=== PATIENT | female | born 1945 | race American Indian/Alaskan Native ===

== ENCOUNTER 2017-01-27 11:03 | Outpatient (CLI) | payer MEDICARE ==
[2017-01-27 11:35] LABS: Blood Urea Nitrogen 18 mg/dL (7-17)
[2017-01-27] MEDS ORDERED: NACL ONE (12:31)
--- NOTE | 2017-01-27 14:33 | Cat Scan Report ---
CT CHEST WITH CONTRAST: HISTORY: Dyspnea, chest pain. TECHNIQUE: Helical CT following IV contrast. Sagittal and coronal reformatted images. FINDINGS: Heart size is normal. There is no evidence of adenopathy within the mediastinum. Pulmonary eladia are free of any mass and the lungs are clear of infiltrates. The pleura is unremarkable. No masses involve the chest wall. No abnormalities are noted within the upper abdomen. The adrenal glands are normal. IMPRESSION: Unremarkable CT scan of the chest.
== END 2017-01-27 11:04 | disposition home or self-care (01) ==
LOC: CT 11:03
PROVIDERS: ATTEND Internal Medicine
DX: R07.2 Precordial pain (principal); R06.00 Dyspnea, unspecified; R10.9 Unspecified abdominal pain
CPT/HCPCS: 36415; 71260; 82565; 84520; Q9967

== ENCOUNTER 2018-12-23 11:11 | Outpatient (CLI) | payer MEDICARE ==
[2018-12-23 12:12] LABS: Blood Urea Nitrogen 11 mg/dL (7-17)
--- NOTE | 2018-12-23 15:35 | Cat Scan Report ---
CT CHEST WITH CONTRAST INDICATION: Female breast cancer. COMPARISON: 01/27/[address] FINDINGS: Chest CT performed following intravenous administration of 100 cc of Omnipaque 300. Stable top normal heart size. No effusions or size significant adenopathy. Mild aortic arch calcifications. Otherwise unremarkable great vessels. Diffuse left breast skin thickening now partially imaged as also few surgical clips in the left axilla with some adjacent 2.3 x 1.6 cm slightly spiculated density, presumed iatrogenic as on axial image 26, series 2, amongst others. Normal imaged thyroid. Lingular scarring, presumed postradiation, now noted as on axial images 55-75. Slight nonspecific distal esophageal prominence/thickening. No acute significant abnormality in the imaged upper abdomen with gallbladder again noted absent. Demineralized bones with multilevel thoracic spine degenerative spurring/DISH. CONCLUSION: 1. Left sided iatrogenic (postsurgical and likely postradiation) changes are new since January 2017, as described. 2. No other significant abnormality or evidence of metastatic disease. Thank you for the opportunity to participate in this patient's care.
== END 2018-12-23 11:12 | disposition home or self-care (01) ==
LOC: CT 11:11
PROVIDERS: ATTEND Internal Medicine Hematology & Oncology
DX: C50.412 Malignant neoplasm of upper-outer quadrant of left female breast (principal)
CPT/HCPCS: 36415; 71260; 82565; 84520; Q9967

== ENCOUNTER 2018-12-26 11:54 | Outpatient (CLI) | payer MEDICARE ==
--- NOTE | 2018-12-27 12:15 | Magnetic Resonance Report ---
BILATERAL BREAST MRI WITHOUT AND WITH CONTRAST: 12/26/18 11:54:00 CLINICAL: History left breast cancer treated with partial mastectomy and radiation therapy in late 2017. She was placed on Arimidex 01/28/18 but ran out of her Arimidex and has not been taking it for 3 months. She complains of pain and swelling in the left axilla and left breast. COMPARISON:None. TECHNIQUE: Axial 1.0-mm T1 without, axial high resolution 2.0-mm T2 and axial 1.0-mm dynamic Vibrant high-resolution postcontrast T1 fat saturation sequences on a 1.5 June magnet. The examination was performed with an 8 channel dedicated [place] breast coil. Post processing with CAD and subtraction was performed on an [employer] workstation. 19.0 cc of Multihance was injected without incident for the contrast portion of the exam. Consent was obtained prior to the administration of the contrast. FINDINGS: Right: Minimal background parenchymal enhancement. No mass or suspicious enhancement. Mild diffuse edema of the breast. No suspicious lymph nodes. Several right axillary lymph nodes have benign morphology and are predominantly fatty. Left: Status post partial mastectomy with lower outer postsurgical scar. Minimal background parenchymal enhancement. Pronounced skin thickening measures 12 mm maximum. Mild enhancement of the lower outer skin. No mass or suspicious enhancement. No suspicious left axillary or left internal mammary lymph nodes. IMPRESSION: 1. Benign posttreatment changes and mild lymphedema of the left breast. 2. No evidence of disease recurrence or metastasis. 3. Negative right breast. BI-RADS 2 - - Benign
== END 2018-12-26 11:55 | disposition home or self-care (01) ==
LOC: SPVIMAG 11:54
PROVIDERS: ATTEND Internal Medicine Hematology & Oncology
DX: I89.0 Lymphedema, not elsewhere classified (principal); C50.412 Malignant neoplasm of upper-outer quadrant of left female breast
CPT/HCPCS: A9577; C8908; 77049

== ENCOUNTER 2019-04-04 15:14 | Outpatient (CLI) | payer MEDICARE ==
--- NOTE | 2019-04-04 16:06 | Mammography Report ---
Left mammogram: Left breast cancer survivor present with about 2 months of discomfort at the site of her surgical scar which is lateral to the nipple. There is a large area of scarlike deformity of the breast related to the surgical site which is just lateral and superior to the nipple. This small circumscribed nodule is identified just below the skin level lateral to the nipple. The findings otherwise appear generally fatty replaced and unremarkable. There is moderate skin thickening most likely from radiation therapy. We have no prior mammograms however the patient does have exams at other facilities. Impression: The findings are most likely all related to her surgery. No overtly suspicious changes. Recommendation: Prior exams are being requested for comparison before final recommendation. BI-RADS CATEGORY: 0 = Needs additional imaging evaluation ACR BI-RADS MAMMOGRAPHIC CODES: 0 = Needs additional imaging evaluation; 1 = Negative; 2 = Benign; 3 = Probably benign; 4 = Suspicious; 5 = Malignant; 6 = Known biopsy-proven malignancy COMMENT: 1. Dense breast tissue, i.e., adenosis, fibrocystic changes, etc., may obscure an underlying neoplasm. 2. Approximately 10% of cancers are not detected with mammography. 3. A negative mammography report should not delay biopsy if a clinically suspicious mass is present.
== END 2019-04-04 15:15 | disposition home or self-care (01) ==
LOC: SPVWC 15:14
PROVIDERS: ATTEND Internal Medicine Hematology & Oncology
DX: C50.412 Malignant neoplasm of upper-outer quadrant of left female breast (principal)